=== PATIENT | female | born 1965 | race Caucasian/White ===

== ENCOUNTER 2021-01-28 12:37 | Outpatient (CLI) | payer OTHER | END 2021-01-28 12:38 | disposition critical access hospital (66) | LOC: EMS 12:37 | DX: R41.0 Disorientation, unspecified (principal); R40.4 Transient alteration of awareness; S09.90XA Unspecified injury of head, initial encounter; V80.010A Animal-rider injured by fall from or being thrown from horse in noncollision accident, initial encounter; Y93.52 Activity, horseback riding | CPT/HCPCS: A0425; A0427 ==

== ENCOUNTER 2021-01-28 12:50 | Emergency (ER) | payer OTHER ==
--- NOTE | 2021-01-28 13:21 | ED Physician Documentation ---
PD HPI HEAD INJURY - Stated complaint Stated Complaint: FALL FROM HORSE - Chief complaint Chief Complaint: Trauma Hd/Nk - History obtained from History obtained from: Patient - History of Present Illness Mechanism of head injury: Fell Where head injury occurred: Home Timing - onset: Today Location of injury: Left Quality of pain: Pain Associated symptoms: LOC, AMS, Amnesia. No: Nausea / vomiting, Paresthesias, Seizures, Ear drainage, Nasal drainage Symptoms improve with: Other (time) Contributing factors: No: Anticoagulated, Intoxicated Similar symptoms before: Has not had sx before Recently seen: Not recently seen - Additional information Additional information: 55-year-old female was out riding her horse she was bucked off of a horse landing on her head and back. She had a loss of consciousness of approximately 1 minute. She has no recollection of the injury and denies any headache or nausea. She denies any significant neck pain. Denies any numbness or tingling. Denies any current illness. Review of Systems Constitutional: denies: Fever Eyes: denies: Decreased vision Ears: denies: Ear pain Nose: denies: Congestion Throat: denies: Sore throat Cardiac: denies: Chest pain / pressure, Palpitations Respiratory: denies: Dyspnea GI: denies: Abdominal Pain, Nausea, Vomiting : denies: Dysuria Skin: denies: Rash Musculoskeletal: reports: Neck pain, Back pain (to the tail bone mild). denies: Extremity pain Neurologic: reports: Confused, Altered mental status, Head injury, LOC. 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, No motor deficit, No sensory deficit, Normal speech Eye Opening: Spontaneous Motor: Obeys Commands Verbal: Confused GCS Score: 14 - Psych Psych: Normal mood, Normal affect Results - Vitals Vitals: Vital Signs - 24 hr 01/28/21 01/28/21 01/28/21 12:50 13:20 13:30 Temperature 36.6 C Heart Rate 86 79 79 Respiratory 16 18 18 Rate Blood Pressure 148/93 H 127/88 H 108/59 L O2 Saturation 100 98 97 01/28/21 01/28/21 01/28/21 13:43 14:00 14:41 Temperature Heart Rate 84 80 84 Respiratory 16 16 16 Rate Blood Pressure 108/59 L 137/80 H 128/82 H O2 Saturation 100 99 100 Oxygen O2 Source Room air - Labs Labs: Laboratory Tests 01/28/21 01/28/21 01/28/21 12:59 12:59 12:59 WBC 7.1 RBC 4.27 Hgb 13.6 Hct 39.7 MCV 93.0 MCH 31.9 H MCHC 34.3 RDW 12.0 Plt Count 255 MPV 10.0 Neut # (Auto) 4.1 Lymph # (Auto) 2.0 [place] # (Auto) 0.6 Eos # (Auto) 0.1 Baso # (Auto) 0.1 Absolute Nucleated RBC 0.00 Nucleated RBC % 0.0 PT 12.4 INR 1.1 Sodium 141 Potassium 4.2 Chloride 107 Carbon Dioxide 25 Anion Gap 9.0 BUN 18 Creatinine 0.9 Estimated GFR (MDRD) 65 L Glucose 107 H Calcium 9.3 - Rads (name of study) CT head without Radiology: Prelim report reviewed (Impression: Diffuse and somewhat asymmetric hyperdensity noted extending from the falx and along the tentorium concerning for extra-axial hemorrhage.), Discussed with rads (concerning for subdural ), EMP read indepedently, See rad report Cervical spine Radiology: Prelim report reviewed (Impression: Moderate multilevel cervical spondylopathy without evidence of any acute osseous abnormality.), EMP read indepedently, See rad report hip Radiology: Prelim report reviewed (Impression: Subtle irregularity of the superior aspect of the left femoral neck which may be related to oblique position given that this is not noted on the frog-leg lateral view. Nondisplaced fracture not completely excluded. Consider cross-sectional imaging versus frontal view of the left hip fo), EMP read indepedently, See rad report PD MEDICAL DECISION MAKING - ED course Complexity details: reviewed old records, reviewed results, re-evaluated siva aly, considered differential, d/w patient ED course: 55-year-old female with a fall off of a horse a concussion and repetitive amnesia amnesia has the appearance of a parafalcine subdural hematoma on her CT scan. She has slow and steady improvement in her short-term memory. I have contacted the trauma doc at [facility] in [place] and he is willing to accept the patient. I talked to Dr. Alcantara the physician in the emergency department and he will accept the patient. There is a question of some subtle findings on x-ray of the patient's hip. She is having some issue with hip flexion and pain in her groin when she does that but otherwise has no specific pain with movement of the hip. She may require further imaging. Departure - Departure Disposition: 02 Transfer Acute Care [facility] Clinical Impression: Traumatic subdural hemorrhage Qualifiers: Encounter type: initial encounter Loss of consciousness presence/duration: with LOC of 30 min or less Qualified Code(s): S06.5X1A - Traumatic subdural hemorrhage with loss of consciousness of 30 minutes or less, initial encounter Contusion of left hip Qualifiers: Encounter type: initial encounter Qualified Code(s): S70.02XA - Contusion of left hip, initial encounter Condition: Stable
--- NOTE | 2021-01-28 13:37 | CT Report ---
PROCEDURE: HEAD WO INDICATIONS: concussion with LOC repetative amnesia TECHNIQUE: Noncontrast 4.5 mm thick angled axial sections acquired from the foramen magnum to the vertex. For r adiation dose reduction, the following was used: automated exposure control, adjustment of mA and/or kV according to patient size. COMPARISON: None. FINDINGS: Image quality: Excellent. CSF spaces: Extra-axial spaces and ventricles are appropriate in size for patient's age. There is inc reased density along the falx and tentorium which is asymmetric along the left raising concern for ex tra-axial hemorrhage. This measures a maximum transverse thickness of 2.5 mm. Brain: No midline shift. No intracranial masses or hemorrhage. Denson-white matter interface is norm al. Skull and face: Calvarium and visualized facial bones are intact, without suspicious lesions. Sinuses: Visualized sinuses and mastoids are clear. IMPRESSION: Diffuse somewhat asymmetric hyperdensity noted extending from the falx and along the tentorium concer carleen for extra-axial hemorrhage. Findings discussed with Dr. Daniel Taylor by Dr. Don Hodges over the telephone at approximately 1230 hours [place] standard time on 01/28/2021. Reviewed by: Don Hodges DO on 01/28/2021 12:35 PM CONCETTA Approved by: Don Hodges DO on 01/28/2021 12:35 PM CONCETTA Station ID: [id number]
--- NOTE | 2021-01-28 13:41 | CT Report ---
PROCEDURE: CERVICAL SPINE WO INDICATIONS: head injury neck pain TECHNIQUE: Noncontrast 3 mm thick sections acquired from the skull base to the T4 level. Sagittal and coronal r eformats were then constructed. For radiation dose reduction, the following was used: automated exp osure control, adjustment of mA and/or kV according to patient size. COMPARISON: None. FINDINGS: Image quality: Excellent. Bones: There is no acute fracture. Alignment is normal. Multilevel degenerative changes of the cervic al spine with complete intervertebral disc space loss at C5-C6 and C6-C7 with endplate degenerative c hanges. Diffuse facet arthropathy. No significant spinal canal stenosis. There is mild bilateral neur al foraminal stenosis at C5-C6 and C6-C7. Corticated calcifications adjacent to the posterior spinous processes of C7 and T1 are likely accessory ossification centers. Soft tissues: Prevertebral soft tissues are normal in thickness. No paravertebral hematomas. No ap ical pneumothoraces. Intra and periparotid lymph nodes are noted bilaterally. Subcentimeter thyroid nodules along with coarse calcification within the right thyroid lobe. IMPRESSION: Moderate multilevel cervical spondylopathy without evidence of any acute osseous abnormality. Reviewed by: Don Hodges DO on 01/28/2021 12:39 PM CONCETTA Approved by: Don Hodges DO on 01/28/2021 12:39 PM CONCETTA Station ID: [id number]
[2021-01-28 13:47] LABS: BASOPHILS # (AUTO) 0.1 10^3/uL (0.0-0.1); BASOPHILS % (AUTO) 1.3 %; EOSINOPHILS # (AUTO) 0.1 10^3/uL (0.0-0.7); HCT - HEMATOCRIT 39.7 % (37.0-47.0); HGB - HEMOGLOBIN 13.6 g/dL (12.0-16.0); LYMPHOCYTES % (AUTO) 28.3 %; MEAN CORPUSCULAR HEMOGLOBIN 31.9 pg (27.0-31.0); MEAN CORPUSCULAR HGB CONC 34.3 g/dL (32.0-36.0); MONOCYTES # (AUTO) 0.6 10^3/uL (0.0-1.0); NEUTROPHILS # (AUTO) 4.1 10^3/uL (1.5-6.6); NEUTROPHILS % (AUTO) 58.3 %; PLT - PLATELET COUNT 255 10^3/uL (130-450); RED BLOOD COUNT 4.27 10^6/uL (4.20-5.40); WHITE BLOOD COUNT 7.1 x10^3/uL (4.8-10.8)
[2021-01-28 13:54] LABS: INR 1.1 (0.8-1.2); PT - PROTHROMBIN TIME 12.4 secs (9.9-12.6)
[2021-01-28 13:55] LABS: CALCIUM 9.3 mg/dL (8.5-10.3); CREATININE 0.9 mg/dL (0.4-1.0); POTASSIUM 4.2 mmol/L (3.5-5.0)
--- NOTE | 2021-01-28 14:18 | XRAY Report ---
PROCEDURE: Hip w/Pelvis 2-3V LT INDICATIONS: fall from horse TECHNIQUE: AP pelvis with lateral view(s) of the bilateral hip(s). COMPARISON: None. FINDINGS: Bones: Questionable irregularity along the femoral neck on the frontal view not definitely identified on the frog leg lateral view. Alignment is normal. Joint spacing is maintained. Mild degenerative os teophytosis of the hips. Soft tissues: The visualized bowel gas pattern is normal. No suspicious soft tissue calcifications. IMPRESSION: Subtle irregularity of the superior aspect of the left femoral neck may be related to ob lique position given that this was not noted on the frog-leg lateral view. Nondisplaced fracture not completely excluded. Consider cross-sectional imaging versus frontal view of the left hip for confirm ation. Reviewed by: Don Hodges DO on 01/28/2021 1:17 PM CONCETTA Approved by: Don Hodges DO on 01/28/2021 1:17 PM CONCETTA Station ID: [id number]
[2021-01-28 14:42] VITALS: BP 128/82
== END 2021-01-28 15:58 | disposition short-term general hospital (02) ==
LOC: ED 12:50
DX: S06.5X1A Traumatic subdural hemorrhage with loss of consciousness of 30 minutes or less, initial encounter (principal); S70.02XA Contusion of left hip, initial encounter; V80.010A Animal-rider injured by fall from or being thrown from horse in noncollision accident, initial encounter; Y93.52 Activity, horseback riding; Y92.009 Unspecified place in unspecified non-institutional (private) residence as the place of occurrence of the external cause; M47.812 Spondylosis without myelopathy or radiculopathy, cervical region
CPT/HCPCS: 36415; 80048; 85025; 85610; 99284

== ENCOUNTER 2021-07-16 07:00 | Outpatient (CLI) | payer SELFPAY | END 2021-07-16 23:59 | disposition home or self-care (01) | LOC: COV 07:00 | PROVIDERS: ATTEND Physician Assistant | DX: Z01.812 Encounter for preprocedural laboratory examination (principal); Z20.822 Contact with and (suspected) exposure to COVID-19 ==

== ENCOUNTER 2022-11-23 17:59 | Emergency (ER) | payer SELFPAY ==
[2022-11-23 18:09] VITALS: BP 132/97
[2022-11-23] MEDS ORDERED: TETANUS/DIPHTHERIA/PERTUSSIS 0.5 ML SYRINGE IM ONE (18:29)
--- NOTE | 2022-11-23 18:45 | ED Physician Documentation ---
PD HPI UPPER EXT INJURY - Stated complaint Stated Complaint: FINGER LAC - Chief complaint Chief Complaint: Laceration - History obtained from History obtained from: Patient - History of Present Illness Pain level max: 1 Pain level now: 1 Associated symptoms: No: Weakness, Numbness, Tingling, Swelling - Additonal information Additional information: L ring finger laceration While cutting blackberries today. She had a griffin pruning farhana. She does not believe that she is up-to-date on her tetanus shot. 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 - Present Medications Home Medications: Ambulatory Orders Medication Instructions Recorded Confirmed No Known Home Medications 11/23/22 11/23/22 - Allergies Allergies/Adverse Reactions: Allergies Allergy/AdvReac Type Severity Reaction Status Date / Time anesthesia AdvReac Nausea Uncoded 11/23/22 18:10 - Social History Does the pt smoke?: No Smoking Status: Never smoker Does the pt drink ETOH?: No Does the pt have substance abuse?: No - Immunizations Immunizations are current?: No Immunizations: TDAP >10years/unknown PD ED PE NORMAL - Vitals Vital signs reviewed: Yes - General General: Alert and oriented X 3, No acute distress - Extremities Extremities: Other (There is a superficial laceration to the left ring finger, palmar aspect, mid phalanx. Neurovascular intact. Tendon intact.) - Neuro Neuro: Alert and oriented X 3 Results - Vitals Vitals: Vital Signs - 24 hr 11/23/22 18:02 Temperature 36.7 C Heart Rate 85 Respiratory 16 Rate Blood Pressure 132/97 H O2 Saturation 97 Oxygen O2 Source Room air Procedures - Laceration (location) Left ring finger Length in cm: 1 Wound type: Curved, Superficial, Clean Neurovascular status: Sensory intact, Motor intact, Vascular intact Tendon involvement: Tendon intact Wound preparation: Irrigated copiously NS Skin layer closure: Dermabond Other: Patient tolerated well, No complications, Neurovascular intact, Dressing applied, Tetanus booster given PD Medical Decision Making - ED course Complexity details: considered differential, d/w patient ED course: Patient with left ring finger laceration. Repaired with Dermabond. Tdap given. Warnings of infection and instructions on wound care given at bedside. Also counseled on how to minimize scarring. Patient counseled regarding signs and symptoms for which I believe and urgent re-evaluation would be necessary. Patient with good understanding of and agreement to plan and is comfortable going home at this time This document was made in part using voice recognition software. While efforts are made to proofread this document, sound alike and grammatical errors may occur. Departure - Departure Disposition: 01 Home, Self Care Clinical Impression: Finger laceration Qualifiers: Encounter type: initial encounter Finger: ring finger Damage to nail status: unspecified Foreign body presence: without foreign body Laterality: left Qualified Code(s): S61.215A - Laceration without foreign body of left ring finger without damage to nail, initial encounter Condition: Good Instructions: ED Laceration Hand Follow-Up: Macarena Medina MD [Primary Care Provider] - As Needed Comments: Keep the wound clean. Do not apply any ointment as this may dissolve the glue. Please return for redness, swelling or drainage from the wound. You were given a tetanus shot today as well. Discharge Date/Time: 11/23/22 19:01
== END 2022-11-23 19:01 | disposition home or self-care (01) ==
LOC: ED 17:59
DX: S61.214A Laceration without foreign body of right ring finger without damage to nail, initial encounter (principal); W27.1XXA Contact with garden tool, initial encounter; Y93.H2 Activity, gardening and landscaping
CPT/HCPCS: 12001; 90471; 99283

== ENCOUNTER 2024-02-16 09:50 | Outpatient (CLI) | payer SELFPAY ==
--- NOTE | 2024-02-17 08:45 | Mammography Report ---
BILATERAL DIGITAL SCREENING MAMMOGRAM 3D/2D: 02/16/2024 CLINICAL: Routine screening. Comparison is made to exam dated: 05/04/2021 mammogram - [facility]. There are scattered areas of fibroglandular density in both breasts (category b / 25%-50% glandular t issue). There is an oval equal density mass with a spiculated and circumscribed margin in the right breast at 6 o'clock posterior depth. There also is an oval asymmetry in the right breast at 1 o'clock anterior depth. No other significant masses, calcifications, or other findings are seen in either breast. IMPRESSION: INCOMPLETE: NEEDS ADDITIONAL IMAGING EVALUATION The oval equal density mass in the right breast at 6 o'clock posterior depth is indeterminate. Addit ional views with possible ultrasound are recommended. The oval asymmetry in the right breast at 1 o'clock anterior depth is indeterminate. Additional view s with possible ultrasound are recommended. Based on the Tyrer Cuzick model (a risk assessment model) the patient's lifetime risk is 8.8% and her 10 year risk is 3.4%. According to the ACR, ACS, and NCCN guidelines, an annual breast MRI exam adrian g with mammogram is recommended if the patient's lifetime risk is 20% or greater. This exam was interpreted at Station ID: [id number]. NOTE: For mammograms, a report in lay terms will be sent to the patient. Approximately 15% of breast malignancies will not be visualized mammographically. In the management of a palpable breast mass, a negative mammogram must not discourage biopsy of a clinically suspicious lesion. Electronically Signed By: Rashmi so/ria:02/16/2024 15:15:43 ACR BI-RADS Category 0: Incomplete 3340F PARENCHYMAL PATTERN: (A) - The breast(s) demonstrate(s) scattered fibroglandular densities. BI-RADS CATEGORY: (0) - 0 Mammo and [place] [id number] Immediate follow-up LATERALITY: (B)
== END 2024-02-16 09:51 | disposition home or self-care (01) ==
LOC: DI 09:50
PROVIDERS: ATTEND Internal Medicine
DX: Z12.31 Encounter for screening mammogram for malignant neoplasm of breast (principal); R92.8 Other abnormal and inconclusive findings on diagnostic imaging of breast; R92.323 Mammographic fibroglandular density, bilateral breasts

== ENCOUNTER 2024-03-22 09:44 | Outpatient (CLI) | payer SELFPAY ==
--- NOTE | 2024-03-23 10:55 | Ultrasound Report ---
LIMITED ULTRASOUND OF RIGHT BREAST: 03/22/2024 CLINICAL: Patient returns today to evaluate a focal asymmetry and mass in the right breast. Comparison is made to exams dated: 02/16/2024 mammogram - [facility] and 05/04/2021 [facility]. Color flow ultrasound of the right breast 1 o'clock and 6 o'clock regions was performed on the areas of interest. Denson scale images of the real-time examination were reviewed. There is a mass in the right breast at 6 o'clock posterior depth. This mass is hypoechoic. There also is a mass in the right breast at 2 o'clock anterior depth. This mass is hypoechoic. IMPRESSION: BENIGN There is no sonographic evidence of malignancy. The mass in the right breast at 6 o'clock posterior depth and the mass in the right breast at 2 o'imer ck anterior depth have demonstrated mammographic stability since 2020, are consistent with fibroadeno mas and are benign. Return to annual mammogram screening schedule is recommended. This exam was interpreted at Station ID: [id number]. Electronically Signed By: Mary hernandez/:03/22/2024 11:18:33 Ultrasound BI-RADS: 2 Benign BI-RADS CATEGORY: (2) - 2 Mammogram [id number] return to screening LATERALITY: (B)
--- NOTE | 2024-03-23 10:55 | Mammography Report ---
UNILATERAL RIGHT DIGITAL DIAGNOSTIC MAMMOGRAM 3D/2D WITH SPOT COMPRESSION: 03/22/2024 CLINICAL: Patient returns for additional imaging over a suspected mass in the right breast. Comparison is made to exams dated: 02/16/2024 mammogram - [facility] and 05/04/2021 [facility]. There are scattered areas of fibroglandular density in the right breast (category b / 25%-50% glandul ar tissue). There is a mass in the right breast at 6 o'clock posterior depth. This is seen in additional views. There also is an oval asymmetry in the right breast at 1 o'clock anterior depth. This is seen in add itional views. No other significant masses or calcifications are seen in the breast. IMPRESSION: INCOMPLETE: NEEDS ADDITIONAL IMAGING EVALUATION The mass in the right breast at 6 o'clock posterior depth is indeterminate. An ultrasound is recomme nded. The oval asymmetry in the right breast at 1 o'clock anterior depth is indeterminate. An ultrasound i s recommended. A targeted ultrasound of the right breast is recommended and will be performed immediately following this exam. Based on the Tyrer Cuzick model (a risk assessment model) the patient's lifetime risk is 8.6% and her 10 year risk is 3.5%. According to the ACR, ACS, and NCCN guidelines, an annual breast MRI exam adrian g with mammogram is recommended if the patient's lifetime risk is 20% or greater. This exam was interpreted at Station ID: [id number]. NOTE: For mammograms, a report in lay terms will be sent to the patient. Approximately 15% of breast malignancies will not be visualized mammographically. In the management of a palpable breast mass, a negative mammogram must not discourage biopsy of a clinically suspicious lesion. Electronically Signed By: Mary hernandez/:03/22/2024 10:45:43 ACR BI-RADS Category 0: Incomplete 3340F PARENCHYMAL PATTERN: (A) - The breast(s) demonstrate(s) scattered fibroglandular densities. BI-RADS CATEGORY: (0) - 0 Ultrasound [id number] Immediate follow-up LATERALITY: (B)
== END 2024-03-22 09:45 | disposition home or self-care (01) ==
LOC: DI 09:44
PROVIDERS: ATTEND Internal Medicine
DX: R92.8 Other abnormal and inconclusive findings on diagnostic imaging of breast (principal); R92.321 Mammographic fibroglandular density, right breast